=== PATIENT | male | born 1960 | race Caucasian/White ===

== ENCOUNTER 2017-04-18 06:08 | Inpatient (IN) | payer OTHER ==
[2017-04-18] VITALS (9 sets, daily range): BP systolic 110–175; BP diastolic 77–99; PULSE 61–96; RESP 16–20; TEMP 95.6–99.1; O2SAT 93–100
[~2017-04-18] VITALS: Ht 180.3 cm; Wt 105.9 kg
[2017-04-18] MEDS ORDERED: SODIUM CHLOR 0.9% 1000 ML INJ 1,000 ML IV SCH (06:27)
[2017-04-18] MEDS ORDERED: ONDANSETRON HCL 4 MG/2 ML VIAL IVP ONE (06:30)
[2017-04-18] MEDS ORDERED: PANTOPRAZOLE SODIUM 40 MG VIAL IVP ONE (06:30)
[2017-04-18] MEDS ORDERED: FAMOTIDINE 20 MG/2 ML VIAL IV PUSH ONE (06:30)
[2017-04-18] MEDS ORDERED: ALUMINUM/MAGNESIUM/SIMETH 30 ML CUP PO ONE (06:30)
[2017-04-18] MEDS ORDERED: SODIUM CHLORIDE 0.9% FLUSH 10 ML FLUSH IV FLUSH PRN ×3 (06:30→16:15)
[2017-04-18] MEDS ORDERED: LIDOCAINE VISCOUS 2% SOLN 15 ML UDC PO ONE (06:30)
--- NOTE | 2017-04-18 06:34 | PD ---
HPI Chief Complaint: GI Complaint Time Seen by Provider: 06:17 Travel History International Travel<30 days: No Contact w/Intl Traveler<30days: No Traveled to known affect area: No History of Present Illness HPI The patient is a 56-year-old male that complains of midline epigastric pain for approximately 4 hours. Initially he had no nausea, now he is developing some nausea. He denies any vomiting. He denies any fever, chest pain or shortness of breath. He denies any sore throat, ear pain, cough. He denies any melanotic or bloody stools. The pain is an 8/10 and fullness sensation, bloating sensation and he states it is a tightness sensation, sometimes throbbing. He states he drank a little [place] hard lemonade before the pain began. He denies any abdominal surgery and still has his appendix and gallbladder. PFSH Past Medical History ?: Not Social History Alcohol Use: Yes Tobacco Use: No Substance Use: Yes (POT) Allergies-Medications (Allergen,Severity, Reaction): Coded Allergies: No Known Allergies (Unverified , 04/18/17) Reported Meds & Prescriptions Reported Meds & Active Scripts Active No Active Prescriptions or Reported Medications Review of Systems Except as stated in HPI: all other systems reviewed are Neg Physical Exam Narrative GENERAL: The patient is alert, oriented 3 in moderate apparent distress with his midline epigastric discomfort. His vital signs show blood pressure 165/79 but are otherwise normal. SKIN: Focused skin assessment warm/dry. No skin rash is seen. HEAD: Atraumatic. Normocephalic. EYES: Pupils equal and round. No scleral icterus. No injection or drainage. ENT: No nasal bleeding or discharge. Mucous membranes pink and moist. NECK: Trachea midline. No JVD. CARDIOVASCULAR: Regular rate and rhythm. No murmur appreciated. RESPIRATORY: No accessory muscle use. Clear to auscultation. Breath sounds equal bilaterally. GASTROINTESTINAL: Abdomen soft, with slight tenderness to direct palpation midline slightly above the umbilicus in a diffuse area, nondistended. Hepatic and splenic margins not palpable. No guarding or rebound is present. MUSCULOSKELETAL: No obvious deformities. No clubbing. No cyanosis. No edema. NEUROLOGICAL: Awake and alert. No obvious cranial nerve deficits. Motor grossly within normal limits. Normal speech. PSYCHIATRIC: Appropriate mood and affect; insight and judgment normal. Data Data Last Documented VS Vital Signs Date Time Temp Pulse Resp B/P (MAP) Pulse Ox O2 Delivery O2 Flow Rate FiO2 04/18/17 06:35 78 16 175/97 (123) 168/99 (122) 04/18/17 06:14 97.6 98 Orders Orders Complete Blood Count With Diff (04/18/17 06:27) Comprehensive Metabolic Panel (04/18/17 06:27) Lipase (04/18/17 06:27) Urinalysis - C+S If Indicated (04/18/17 06:27) Ct Abd/Pel W Iv Contrast(Rout) (04/18/17 06:27) Iv Access Insert/Monitor (04/18/17:27) Ecg Monitoring (04/18/17:27) Oximetry (04/18/17 06:27) Ondansetron Inj (Zofran Inj) (04/18/17 06:30) Pantoprazole Inj (Protonix Inj) (04/18/17 06:30) Sodium Chlor 0.9% 1000 Ml Inj (Ns 1000 M (04/18/17 06:27) Sodium Chloride 0.9% Flush (Ns Flush) (04/18/17 06:30) Famotidine Inj (Pepcid Inj) (04/18/17 06:30) Al-Mag Hy-Si 40-40-4 Mg/Ml Liq (Mag-Al P (04/18/17 06:30) Lidocaine 2% Viscous (Xylocaine 2% Visco (04/18/17 06:30) Morphine Inj (Morphine Inj) (04/18/17 07:00) Ondansetron Inj (Zofran Inj) (04/18/17 07:00) Labs Laboratory Tests Test 04/18/17 06:35 White Blood Count 11.5 TH/MM3 Red Blood Count 5.54 MIL/MM3 Hemoglobin 15.6 GM/DL Hematocrit 45.0 % Mean Corpuscular Volume 81.2 FL Mean Corpuscular Hemoglobin 28.1 PG Mean Corpuscular Hemoglobin Concent 34.6 % Red Cell Distribution Width 13.0 % Platelet Count 274 TH/MM3 Mean Platelet Volume 9.4 FL Neutrophils (%) (Auto) 80.5 % Lymphocytes (%) (Auto) 12.2 % Monocytes (%) (Auto) 5.8 % Eosinophils (%) (Auto) 0.6 % Basophils (%) (Auto) 0.9 % Neutrophils # (Auto) 9.2 TH/MM3 Lymphocytes # (Auto) 1.4 TH/MM3 Monocytes # (Auto) 0.7 TH/MM3 Eosinophils # (Auto) 0.1 TH/MM3 Basophils # (Auto) 0.1 TH/MM3 CBC Comment DIFF FINAL Differential Comment Blood Urea Nitrogen 16 MG/DL Random Glucose 156 MG/DL Albumin 3.7 GM/DL Calcium Level 8.7 MG/DL Sodium Level 140 MEQ/L Potassium Level 3.5 MEQ/L Chloride Level 107 MEQ/L Carbon Dioxide Level 26.4 MEQ/L Anion Gap 7 MEQ/L Lipase 127 U/L MDM Medical Decision Making Medical Screen Exam Complete: Yes Emergency Medical Condition: Yes Medical Record Reviewed: Yes Interpretation(s) The CBC shows a white count 11,500 with 81% neutrophils but is otherwise unremarkable. Differential Diagnosis GERD, ulcer pain, cholelithiasis with colic, cholecystitis, colitis, pyelonephritis, gastritis, pancreatitis, electrolyte disorder Narrative Course It is now 0700 and the patient is taken over by Dr. Allen. Scripts No Active Prescriptions or Reported Meds Miquel Campbell MD Apr 18, 2017 06:34
[2017-04-18 06:46] LABS: AUTOMATED NEUTROPHIL # 9.2 TH/MM3 (1.8-7.7); BASOPHIL # 0.1 TH/MM3 (0-0.2); BASOPHIL % 0.9 % (0.0-2.0); EOSINOPHIL # 0.1 TH/MM3 (0-0.4); EOSINOPHIL % 0.6 % (0.0-4.0); HEMOGLOBIN 15.6 GM/DL (13.0-17.0); LYMPH % 12.2 % (9.0-44.0); LYMPHOCYTE # 1.4 TH/MM3 (1.0-4.8); MEAN CELL VOLUME 81.2 FL (80.0-100.0); MEAN CORPUSCULAR HEMOGLOBIN 28.1 PG (27.0-34.0); MEAN CORPUSCULAR HGB CONC 34.6 % (32.0-36.0); MEAN PLATELET VOLUME 9.4 FL (7.0-11.0); MONO % 5.8 % (0.0-8.0); MONOCYTE # 0.7 TH/MM3 (0-0.9); NEUT % 80.5 % (16.0-70.0); PLATELET COUNT 274 TH/MM3 (150-450); RED BLOOD COUNT 5.54 MIL/MM3 (4.50-5.90); WHITE BLOOD COUNT 11.5 TH/MM3 (4.0-11.0)
[2017-04-18 06:55] LABS: CHLORIDE 107 MEQ/L (98-107); SODIUM (NA) 140 MEQ/L (136-145)
[2017-04-18 06:59] LABS: CALCIUM 8.7 MG/DL (8.5-10.1)
[2017-04-18 07:00] LABS: ALBUMIN 3.7 GM/DL (3.4-5.0); BICARBONATE 26.4 MEQ/L (21.0-32.0); BLOOD UREA NITROGEN 16 MG/DL (7-18); GLUCOSE,RANDOM 156 MG/DL (74-106)
[2017-04-18] MEDS ORDERED: ONDANSETRON HCL 4 MG/2 ML VIAL IV ONE ×2 (07:00→12:00)
[2017-04-18] MEDS ORDERED: MORPHINE SULFATE 2 MG/ML INJ IV PUSH ONE (07:00)
[2017-04-18 07:02] LABS: ALT (GPT) 25 U/L (12-78); AST (GOT) 13 U/L (15-37); GLOMERULAR FILTRATION RATE 63 ML/MIN (>89)
[2017-04-18 07:04] LABS: TOTAL BILIRUBIN ADULT 0.6 MG/DL (0.2-1.0); TOTAL PROTEIN 7.6 GM/DL (6.4-8.2)
[2017-04-18 07:05] LABS: ALKALINE PHOSPHATASE 86 U/L (45-117)
--- NOTE | 2017-04-18 07:12 | PD ---
HPI Chief Complaint: GI Complaint Time Seen by Provider: 07:11 Travel History International Travel<30 days: No Contact w/Intl Traveler<30days: No Traveled to known affect area: No History of Present Illness HPI Care assumed from Dr. Campbell please see his note. The patient is a 56-year-old male that complains of midline epigastric pain for approximately 4 hours. Initially he had no nausea, now he is developing some nausea. He denies any vomiting. He denies any fever, chest pain or shortness of breath. He denies any sore throat, ear pain, cough. He denies any melanotic or bloody stools. The pain is an 8/10 and fullness sensation, bloating sensation and he states it is a tightness sensation, sometimes throbbing. He states he drank a little [place] hard lemonade before the pain began. He denies any abdominal surgery and still has his appendix and gallbladder. PFSH Past Medical History ?: Not Social History Alcohol Use: Yes Tobacco Use: No Substance Use: Yes (POT) Allergies-Medications (Allergen,Severity, Reaction): Coded Allergies: No Known Allergies (Unverified , 04/18/17) Reported Meds & Prescriptions Reported Meds & Active Scripts Active No Active Prescriptions or Reported Medications Physical Exam Narrative GENERAL: The patient is alert, oriented 3 in moderate apparent distress with his midline epigastric discomfort. His vital signs show blood pressure 165/79 but are otherwise normal. SKIN: Focused skin assessment warm/dry. No skin rash is seen. HEAD: Atraumatic. Normocephalic. EYES: Pupils equal and round. No scleral icterus. No injection or drainage. ENT: No nasal bleeding or discharge. Mucous membranes pink and moist. NECK: Trachea midline. No JVD. CARDIOVASCULAR: Regular rate and rhythm. No murmur appreciated. RESPIRATORY: No accessory muscle use. Clear to auscultation. Breath sounds equal bilaterally. GASTROINTESTINAL: Abdomen soft, with slight tenderness to direct palpation midline slightly above the umbilicus in a diffuse area, nondistended. Hepatic and splenic margins not palpable. No guarding or rebound is present. MUSCULOSKELETAL: No obvious deformities. No clubbing. No cyanosis. No edema. NEUROLOGICAL: Awake and alert. No obvious cranial nerve deficits. Motor grossly within normal limits. Normal speech. PSYCHIATRIC: Appropriate mood and affect; insight and judgment normal. Data Data Last Documented VS Vital Signs Date Time Temp Pulse Resp B/P (MAP) Pulse Ox O2 Delivery O2 Flow Rate FiO2 04/18/17 08:20 61 16 150/88 (108) 98 Room Air 04/18/17 06:14 97.6 Orders Orders Complete Blood Count With Diff (04/18/17 06:27) Comprehensive Metabolic Panel (04/18/17 06:27) Lipase (04/18/17 06:27) Urinalysis - C+S If Indicated (04/18/17 06:27) Ct Abd/Pel W Iv Contrast(Rout) (04/18/17 06:27) Iv Access Insert/Monitor (04/18/17 06:27) Ecg Monitoring (04/18/17 06:27) Oximetry (04/18/17 06:27) Ondansetron Inj (Zofran Inj) (04/18/17 06:30) Pantoprazole Inj (Protonix Inj) (04/18/17 06:30) Sodium Chlor 0.9% 1000 Ml Inj (Ns 1000 M (04/18/17 06:27) Sodium Chloride 0.9% Flush (Ns Flush) (04/18/17 06:30) Famotidine Inj (Pepcid Inj) (04/18/17 06:30) Al-Mag Hy-Si 40-40-4 Mg/Ml Liq (Mag-Al P (04/18/17 06:30) Lidocaine 2% Viscous (Xylocaine 2% Visco (04/18/17 06:30) Morphine Inj (Morphine Inj) (04/18/17 07:00) Ondansetron Inj (Zofran Inj) (04/18/17 07:00) Promethazine Inj (Phenergan Inj) (04/18/17 07:30) Iohexol 350 Inj (Omnipaque 350 Inj) (04/18/17 07:30) Admit Order (Ed Use Only) (04/18/17 ) Labs Laboratory Tests Test 04/18/17 06:35 04/18/17 07:45 White Blood Count 11.5 TH/MM3 Red Blood Count 5.54 MIL/MM3 Hemoglobin 15.6 GM/DL Hematocrit 45.0 % Mean Corpuscular Volume 81.2 FL Mean Corpuscular Hemoglobin 28.1 PG Mean Corpuscular Hemoglobin Concent 34.6 % Red Cell Distribution Width 13.0 % Platelet Count 274 TH/MM3 Mean Platelet Volume 9.4 FL Neutrophils (%) (Auto) 80.5 % Lymphocytes (%) (Auto) 12.2 % Monocytes (%) (Auto) 5.8 % Eosinophils (%) (Auto) 0.6 % Basophils (%) (Auto) 0.9 % Neutrophils # (Auto) 9.2 TH/MM3 Lymphocytes # (Auto) 1.4 TH/MM3 Monocytes # (Auto) 0.7 TH/MM3 Eosinophils # (Auto) 0.1 TH/MM3 Basophils # (Auto) 0.1 TH/MM3 CBC Comment DIFF FINAL Differential Comment Blood Urea Nitrogen 16 MG/DL Creatinine 1.20 MG/DL Random Glucose 156 MG/DL Total Protein 7.6 GM/DL Albumin 3.7 GM/DL Calcium Level 8.7 MG/DL Alkaline Phosphatase 86 U/L Aspartate Amino Transf (AST/SGOT) 13 U/L Alanine Aminotransferase (ALT/SGPT) 25 U/L Total Bilirubin 0.6 MG/DL Sodium Level 140 MEQ/L Potassium Level 3.5 MEQ/L Chloride Level 107 MEQ/L Carbon Dioxide Level 26.4 MEQ/L Anion Gap 7 MEQ/L Estimat Glomerular Filtration Rate 63 ML/MIN Lipase 127 U/L Urine Collection Type CLEAN CATCH Urine Color YELLOW Urine Turbidity CLEAR Urine pH 6.0 Urine Specific [place] 1.035 Urine Protein TRACE mg/dL Urine Glucose (UA) 100 mg/dL Urine Ketones NEG mg/dL Urine Occult Blood NEG Urine Nitrite NEG Urine Bilirubin NEG Urine Leukocyte Esterase NEG Urine RBC 0-3 /hpf Urine Squamous Epithelial Cells 0-5 /hpf Urine Mucus OCC /lpf Microscopic Urinalysis Comment CULT NOT INDICATED Urine Collection Time 07:45 MDM Medical Decision Making Medical Screen Exam Complete: Yes Emergency Medical Condition: Yes Differential Diagnosis Gastroenteritis, small bowel obstruction, GERD, cholecystitis, pancreatitis Narrative Course Assessment and plan discussed with the patient at bedside. Mild leukocytosis noted. Blood pressure noted. Last meal 10 PM yesterday. Last 72 hours Impressions Abdomen/Pelvis CT 04/18/17 0627 Signed Impressions: Service Date/Time: Tuesday, April 18, 2017 07:28 - CONCLUSION: 1. 2 gallstones are seen. The gallbladder is mildly distended but the gallbladder wall not clearly thickened and no surrounding inflammatory changes seen. 2. 3 small nonobstructing left renal stones. Ambrocio Walsh MD Physician Communication Physician Communication Spoke with Dr. Sutton who is in agreement will admit. Spoke with Dr. Jin who is on trauma call and agreed with transfer to the main. Diagnosis Primary Impression: Cholecystitis Additional Impressions: Leukocytosis Qualified Codes: D72.829 - Elevated white blood cell count, unspecified Hypertension Qualified Codes: I10 - Essential (primary) hypertension Scripts No Active Prescriptions or Reported Meds David Allen MD Apr 18, 2017 07:12
[2017-04-18] MEDS ORDERED: PROMETHAZINE INJ 25 MG/ML VIAL IM ONE (07:30)
[2017-04-18] MEDS ORDERED: IOHEXOL 350 MG/ML 10 ML VIAL (for RAD DIAG) IVCONTRAST ONE (07:30)
--- NOTE | 2017-04-18 07:49 | RADRPT ---
EXAM DATE/TIME: 04/18/2017 07:28 [facility] COMPARISON: No previous studies available for comparison. INDICATIONS : Middle abdominal pain, nausea. IV CONTRAST: 100 cc Omnipaque 350 (iohexol) IV ORAL CONTRAST: No oral contrast ingested. RADIATION DOSE: 21.26 CTDIvol (mGy) MEDICAL HISTORY : None SURGICAL HISTORY : None. ENCOUNTER: Initial ACUITY: 1 day PAIN SCALE: 8/10 LOCATION: middle abdomen TECHNIQUE: Volumetric scanning of the abdomen and pelvis was performed. Using automated exposure control and ad justment of the mA and/or kV according to patient size, radiation dose was kept as low as reasonably achievable to obtain optimal diagnostic quality images. DICOM format image data is available electro nically for review and comparison. FINDINGS: LOWER LUNGS: There is mild increased density at the lung bases likely related to atelectasis. LIVER: Homogeneous density without lesion. There is no dilation of the biliary tree. There are calcified ga llstones. One of the gallstones is seen in the gallbladder neck region. The gallbladder is moderately distended. The gallbladder wall is not clearly thickened. Surrounding inflammatory change is not see n. SPLEEN: Normal size without lesion. PANCREAS: Within normal limits. KIDNEYS: There are 3 small, less than 5 mm, nonobstructing left renal stones seen. No right-sided stones are s een. No hydronephrosis is seen. ADRENAL GLANDS: Within normal limits. VASCULAR: There is no aortic aneurysm. Aortic calcifications are seen. BOWEL/MESENTERY: The stomach, small bowel, and colon demonstrate no acute abnormality. There is no free intraperitone al air or fluid. The appendix is normal. ABDOMINAL WALL: Within normal limits. RETROPERITONEUM: There is no lymphadenopathy. BLADDER: No wall thickening or mass. REPRODUCTIVE: Within normal limits. INGUINAL: There is no lymphadenopathy or hernia. MUSCULOSKELETAL: There is degenerative change in the lumbar spine. 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 CONCLUSION: 1. 2 gallstones are seen. The gallbladder is mildly distended but the gallbladder wall not clearly th ickened and no surrounding inflammatory changes seen. 2. 3 small nonobstructing left renal stones. Ambrocio Walsh MD on April 18, 2017 at 7:40 Board Certified Radiologist. This report was verified electronically.
[2017-04-18 07:50] LABS: BILIRUBIN, URINE NEG (NEG); BLOOD, URINE NEG (NEG); GLUCOSE,URINE 100 mg/dL (NEG); KETONE, URINE NEG (NEG); NITRITE,URINE NEG (NEG); URINE LEUKOCYTE ESTERASE NEG (NEG)
[2017-04-18 07:55] LABS: URINE COLOR YELLOW (YELLW/STRAW)
[2017-04-18 07:56] LABS: MUCUS URINE OCC /lpf (OCC); RBC, URINE 0-3 /hpf (0-3); SQUAMOUS EPITHELIAL CELL URINE 0-5 /hpf (0-5)
[2017-04-18] MEDS ORDERED: ONDANSETRON HCL 4 MG/2 ML VIAL IVP PRN (10:30)
[2017-04-18] MEDS ORDERED: MAGNESIUM HYDROXIDE SUSP 30 ML CUP PO PRN ×2 (10:30→16:15)
[2017-04-18] MEDS ORDERED: NALOXONE HCL 0.4 MG/ML AMP IV PUSH PRN (10:30)
[2017-04-18] MEDS ORDERED: LACTULOSE SYRUP 20 GM/30 ML CUP PO PRN (10:30)
[2017-04-18] MEDS ORDERED: MORPHINE SULFATE 2 MG/ML INJ IV PUSH PRN (10:30)
[2017-04-18] MEDS ORDERED: SENNOSIDES 8.6 MG TAB PO PRN (10:30)
[2017-04-18] MEDS ORDERED: BISACODYL 10 MG SUPP RECTAL PRN (10:30)
--- NOTE | 2017-04-18 10:38 | HHI.HP ---
HPI Service [facility] Hospitalists Primary Care Physician No Primary Care Physician Admission Diagnosis acute cholecystitis Chief Complaint: abdominal pain nausea one to two days Travel History International Travel<30 Days: No Contact w/Intl Traveler <30 Da: No Traveled to Known Affected Are: No History of Present Illness The patient is a 56-year-old male that complains of midline epigastric pain for approximately 4 hours. Initially he had no nausea, now he is developing some nausea. He denies any vomiting. He denies any fever, chest pain or shortness of breath. He denies any sore throat, ear pain, cough. He denies any melanotic or bloody stools. The pain is an 8/10 and fullness sensation, bloating sensation and he states it is a tightness sensation, sometimes throbbing. He states he drank a little [place] hard lemonade before the pain began. He denies any abdominal surgery and still has his appendix and gallbladder. Patient symptoms may have started about 2 days ago and on CT has distended gallbladder with gallstones Review of Systems Gastrointestinal: COMPLAINS OF: Abdominal pain, Nausea Past Family Social History Past Medical History none Past Surgical History none Reported Medications none Allergies: Coded Allergies: No Known Allergies (Unverified , 04/18/17) Social History occ-pot non smoker non drinker Physical Exam Vital Signs Vital Signs Date Time Temp Pulse Resp B/P (MAP) Pulse Ox O2 Delivery O2 Flow Rate FiO2 04/18/17 08:20 61 16 150/88 (108) 98 Room Air 04/18/17 07:05 16 04/18/17 06:35 78 16 175/97 (123) 168/99 (122) 04/18/17 06:14 97.6 74 18 165/79 (107) 98 Physical Exam GENERAL: This is a well-nourished, well-developed patient, in no apparent distress. SKIN: No rashes, ecchymoses or lesions. Cool and dry. HEAD: Atraumatic. Normocephalic. No temporal or scalp tenderness. EYES: Pupils equal round and reactive. Extraocular motions intact. No scleral icterus. No injection or drainage. ENT: Nose without bleeding, purulent drainage or septal hematoma. Throat without erythema, tonsillar hypertrophy or exudate. Uvula midline. Airway patent. NECK: Trachea midline. No JVD or lymphadenopathy. Supple, nontender, no meningeal signs. CARDIOVASCULAR: Regular rate and rhythm without murmurs, gallops, or rubs. RESPIRATORY: Clear to auscultation. Breath sounds equal bilaterally. No wheezes , rales, or rhonchi. GASTROINTESTINAL: Abdomen soft, tender rt upper quadrant no rebound MUSCULOSKELETAL: Extremities without clubbing, cyanosis, or edema. No joint tenderness, effusion, or edema noted. No calf tenderness. Negative Homans sign bilaterally. NEUROLOGICAL: Awake and alert. Cranial nerves II through XII intact. Motor and sensory grossly within normal limits. Five out of 5 muscle strength in all muscle groups. Normal speech. Laboratory Laboratory Tests Test 04/18/17 06:35 04/18/17 07:45 White Blood Count 11.5 Red Blood Count 5.54 Hemoglobin 15.6 Hematocrit 45.0 Mean Corpuscular Volume 81.2 Mean Corpuscular Hemoglobin 28.1 Mean Corpuscular Hemoglobin Concent 34.6 Red Cell Distribution Width 13.0 Platelet Count 274 Mean Platelet Volume 9.4 Neutrophils (%) (Auto) 80.5 Lymphocytes (%) (Auto) 12.2 Monocytes (%) (Auto) 5.8 Eosinophils (%) (Auto) 0.6 Basophils (%) (Auto) 0.9 Neutrophils # (Auto) 9.2 Lymphocytes # (Auto) 1.4 Monocytes # (Auto) 0.7 Eosinophils # (Auto) 0.1 Basophils # (Auto) 0.1 CBC Comment DIFF FINAL Differential Comment Blood Urea Nitrogen 16 Creatinine 1.20 Random Glucose 156 Total Protein 7.6 Albumin 3.7 Calcium Level 8.7 Alkaline Phosphatase 86 Aspartate Amino Transf (AST/SGOT) 13 Alanine Aminotransferase (ALT/SGPT) 25 Total Bilirubin 0.6 Sodium Level 140 Potassium Level 3.5 Chloride Level 107 Carbon Dioxide Level 26.4 Anion Gap 7 Estimat Glomerular Filtration Rate 63 Lipase 127 Urine Collection Type CLEAN CATCH Urine Color YELLOW Urine Turbidity CLEAR Urine pH 6.0 Urine Specific [place] 1.035 Urine Protein TRACE Urine Glucose (UA) 100 Urine Ketones NEG Urine Occult Blood NEG Urine Nitrite NEG Urine Bilirubin NEG Urine Leukocyte Esterase NEG Urine RBC 0-3 Urine Squamous Epithelial Cells 0-5 Urine Mucus OCC Microscopic Urinalysis Comment CULT NOT INDICATED Urine Collection Time 07:45 Result Diagram: 04/18/1763404/[id number]/17634 Imaging Last 24 hours Impressions Abdomen/Pelvis CT 04/18/17 06 Signed Impressions: Service Date/Time: Tuesday, April 18, 2017 07:28 - CONCLUSION: 1. 2 gallstones are seen. The gallbladder is mildly distended but the gallbladder wall not clearly thickened and no surrounding inflammatory changes seen. 2. 3 small nonobstructing left renal stones. Ambrocio Walsh MD Course in er given pain medication Septic Shock Reassessment Septic shock perfusion: reassessment completed Caprini VTE Risk Assessment Caprini VTE Risk Assessment: No/Low Risk (score <= 1) Caprini Risk Assessment Model Point Value = 1 Point Value = 2 Point Value = 3 Point Value = 5 Age 41-60 Minor surgery BMI > 25 kg/m2 Swollen legs Varicose veins or History of unexplained or recurrent spontaneous Oral contraceptives or hormone replacement Sepsis (< 1 month) Serious lung disease, including pneumonia (< 1 month) Abnormal pulmonary function Acute myocardial infarction Congestive heart failure (< 1 month) History of inflammatory bowel disease Medical patient at bed rest Age 61-74 Arthroscopic surgery Major open surgery (> 45 min) Laparoscopic surgery (> 45 min) Malignancy Confined to bed (> 72 hours) Immobilizing plaster cast Central venous access Age >= 75 History of VTE Family history of VTE Factor V Leiden Prothrombin [id number] Lupus anticoagulant Anticardiolipin antibodies Elevated serum homocysteine Heparin-induced thrombocytopenia Other congenital or acquired thrombophilia Stroke (< 1 month) Elective arthroplasty Hip, pelvis, or leg fracture Acute spinal cord injury (< 1 month) Prophylaxis Regimen Total Risk Factor Score Risk Level Prophylaxis Regimen 0-1 Low Early ambulation 2 Moderate Order ONE of the following: *Sequential Compression Device (SCD) *Heparin 5000 units SQ BID 3-4 Higher Order ONE of the following medications: *Heparin 5000 units SQ TID *Enoxaparin/Lovenox 40 mg SQ daily (WT < 150 kg, CrCl > 30 mL/min) *Enoxaparin/Lovenox 30 mg SQ daily (WT < 150 kg, CrCl > 10-29 mL/min) *Enoxaparin/Lovenox 30 mg SQ BID (WT < 150 kg, CrCl > 30 mL/min) AND/OR *Sequential Compression Device (SCD) 5 or more Highest Order ONE of the following medications: *Heparin 5000 units SQ TID (Preferred with Epidurals) *Enoxaparin/Lovenox 40 mg SQ daily (WT < 150 kg, CrCl > 30 mL/min) *Enoxaparin/Lovenox 30 mg SQ daily (WT < 150 kg, CrCl > 10-29 mL/min) *Enoxaparin/Lovenox 30 mg SQ BID (WT < 150 kg, CrCl > 30 mL/min) AND *Sequential Compression Device (SCD) Assessment and Plan Problem List: (1) Cholecystitis ICD Codes: K81.9 - Cholecystitis, unspecified Status: Acute Plan: to have surgical evaluation empiric IV fluid levaquin further plan as per general surgery Assessment and Plan as above Code Status full Discussed Condition With patient Physician Certification 2 Midnight Certification Type: Admission for Inpatient Services Order for Inpatient Services The services are ordered in accordance with Medicare regulations or non- Medicare payer requirements, as applicable. In the case of services not specified as inpatient-only, they are appropriately provided as inpatient services in accordance with the 2-midnight benchmark. Estimated LOS (days): 3 3 days is the estimated time the patient will need to remain in the hospital, assuming treatment plan goals are met and no additional complications. Post-Hospital Plan: Home Scott Sutton MD Apr 18, 2017 10:38
[2017-04-18] MEDS: SODIUM CHLOR 0.45% 1000 ML INJ 1,000 ML IV SCH ×2 (10:57→12:45)
[2017-04-18] MEDS: LEVOFLOXACIN 500 MG PREMIX INJ 100 ML IV SCH (10:58)
[2017-04-18] MEDS: PANTOPRAZOLE SODIUM 40 MG VIAL IV PUSH SCH (10:58)
[2017-04-18] MEDS ORDERED: LIDOCAINE HCL 1% PF 5 ML SYRINGE OTHER ONE (12:00)
[2017-04-18] MEDS ORDERED: GLYCOPYRROLATE 1 MG/5 ML SYRINGE IV PUSH ONE (12:00)
[2017-04-18] MEDS ORDERED: PROPOFOL 200 MG/20 ML AMP IV ONE (12:00)
[2017-04-18] MEDS ORDERED: DEXAMETHASONE SOD PHOS 4 MG/ML VIAL IV ONE (12:00)
[2017-04-18] MEDS ORDERED: ROCURONIUM INJ 50 MG/5 ML SYRINGE IV PUSH ONE (12:00)
[2017-04-18] MEDS ORDERED: NEOSTIGMINE 5 MG/5 ML SYRINGE IV PUSH ONE (12:00)
[2017-04-18] MEDS ORDERED: BUPIVACAINE/EPINEPHRINE 0.25% 50 ML VIAL ONE (14:40)
[2017-04-18] MEDS ORDERED: Post-op Orders (for Pharmacy) XX ONE (16:15)
[2017-04-18] MEDS ORDERED: ONDANSETRON HCL 4 MG/2 ML VIAL IV PUSH PRN (16:15)
[2017-04-18] MEDS ORDERED: METOCLOPRAMIDE HCL 10 MG/2 ML VIAL IVS PRN (16:15)
[2017-04-18] MEDS ORDERED: MIDAZOLAM HCL 2 MG/2 ML VIAL ONE (16:40)
[2017-04-18] MEDS: SODIUM CHLOR 0.9% 1000 ML INJ 1,000 ML IV SCH (16:46)
[2017-04-18] MEDS ORDERED: DO NOT ADM ANY ANTICOAGULANT DRUGS PRN (17:15)
[2017-04-18] MEDS: KETOROLAC TROMETHAMINE 30 MG/ML (IVP) VIAL IVP PRN (17:40)
[2017-04-18] MEDS ORDERED: SODIUM CHLORIDE 0.9% FLUSH 10 ML FLUSH IV FLUSH SCH (21:00)
[2017-04-18] MEDS: DOCUSATE SODIUM 50 MG/SENNA 8.6 MG TAB PO SCH (21:29)
[2017-04-18] MEDS: SODIUM CHLORIDE 0.9% FLUSH 10 ML FLUSH IV FLUSH SCH (21:29)
[2017-04-19] MEDS: SODIUM CHLOR 0.9% 1000 ML INJ 1,000 ML IV SCH ×2 (03:00→11:51)
[2017-04-19 04:00] VITALS: BP 118/68; PULSE 91; RESP 20; TEMP 97.6; O2SAT 96
[2017-04-19 08:00] VITALS: BP 110/67; PULSE 89; RESP 18; TEMP 97.5; O2SAT 94
[2017-04-19 08:17] LABS: AUTOMATED NEUTROPHIL # 10.7 TH/MM3 (1.8-7.7); HEMATOCRIT 40.9 % (39.0-51.0); HEMOGLOBIN 13.8 GM/DL (13.0-17.0); LYMPH % 10.6 % (9.0-44.0); LYMPHOCYTE # 1.4 TH/MM3 (1.0-4.8); MEAN CELL VOLUME 81.8 FL (80.0-100.0); MEAN CORPUSCULAR HEMOGLOBIN 27.6 PG (27.0-34.0); MEAN CORPUSCULAR HGB CONC 33.7 % (32.0-36.0); MEAN PLATELET VOLUME 9.2 FL (7.0-11.0); MONOCYTE # 1.2 TH/MM3 (0-0.9); NEUT % 80.4 % (16.0-70.0); PLATELET COUNT 252 TH/MM3 (150-450); RED CELL DISTRIBUTION WIDTH 14.1 % (11.6-17.2); WHITE BLOOD COUNT 13.3 TH/MM3 (4.0-11.0)
[2017-04-19 08:41] LABS: ALBUMIN 3.1 GM/DL (3.4-5.0); ALT (GPT) 40 U/L (12-78); AST (GOT) 25 U/L (15-37); BICARBONATE 24.5 MEQ/L (21.0-32.0); BLOOD UREA NITROGEN 12 MG/DL (7-18); CALCIUM 8.1 MG/DL (8.5-10.1); CHLORIDE 109 MEQ/L (98-107); CREATININE 0.96 MG/DL (0.60-1.30); GLOMERULAR FILTRATION RATE 82 ML/MIN (>89); GLUCOSE,RANDOM 94 MG/DL (74-106); SODIUM (NA) 141 MEQ/L (136-145)
[2017-04-19 08:43] LABS: ALKALINE PHOSPHATASE 63 U/L (45-117); TOTAL PROTEIN 6.4 GM/DL (6.4-8.2)
[2017-04-19] MEDS: DOCUSATE SODIUM 50 MG/SENNA 8.6 MG TAB PO SCH (09:13)
[2017-04-19] MEDS: SODIUM CHLORIDE 0.9% FLUSH 10 ML FLUSH IV FLUSH SCH (09:14)
[2017-04-19] MEDS: KETOROLAC TROMETHAMINE 30 MG/ML (IVP) VIAL IVP PRN (09:14)
--- NOTE | 2017-04-19 09:50 | HHI.PR ---
Subjective Remarks flatus alex liquids eager for d/c pain under control Objective Vitals heart reg lung cta abd bs. incisions ok. ext no edema Vital Signs Date Time Temp Pulse Resp B/P (MAP) Pulse Ox O2 Delivery O2 Flow Rate FiO2 04/19/17 08:00 97.5 89 18 110/67 (81) 94 04/19/17 04:00 97.6 91 20 118/68 (85) 96 04/18/17 23:55 99.1 91 20 110/77 (88) 97 04/18/17 22:08 Room Air 04/18/17 20:00 97.6 81 19 137/80 (99) 96 04/18/17 17:43 95.6 62 16 140/87 (104) 93 04/18/17 17:30 Nasal Cannula 2.00 04/18/17 17:15 57 16 138/86 (103) 96 Nasal Cannula 2 04/18/17 17:00 71 17 157/93 (114) 96 Nasal Cannula 4 04/18/17 16:45 70 14 150/87 (108) 96 Nasal Cannula 4 04/18/17 16:35 98.5 67 17 161/104 (123) 96 Simple Mask 7 04/18/17 12:28 97.8 85 17 134/80 (98) 100 04/18/17 10:30 96 18 159/87 (111) 98 Room Air Result Diagram: 04/19/17 0729 04/19/17 0729 Imaging Last 24 hours Impressions Abdomen/Pelvis CT 04/18/17 0627 Signed Impressions: Service Date/Time: Tuesday, April 18, 2017 07:28 - CONCLUSION: 1. 2 gallstones are seen. The gallbladder is mildly distended but the gallbladder wall not clearly thickened and no surrounding inflammatory changes seen. 2. 3 small nonobstructing left renal stones. Ambrocio Walsh MD A/P Problem List: (1) Cholecystitis ICD Codes: K81.9 - Cholecystitis, unspecified Status: Acute Plan: pod 1 lap ana for cholecystitis advance diet and d/c when ok with gen surg Eric Gale MD Apr 19, 2017 09:50
--- NOTE | 2017-04-19 09:51 | HHI.DCPOC ---
Discharge Care Plan Diagnosis: (1) Cholecystitis Goals to Promote Your Health * To prevent worsening of your condition and complications * To maintain your health at the optimal level Directions to Meet Your Goals Take your medications as prescribed Follow your dietary instruction Follow activity as directed Keep your appointments as scheduled Take your immunizations and boosters as scheduled If your symptoms worsen call your PCP, if no PCP go to Urgent Care Center or Emergency Room Smoking is Dangerous to Your Health. Avoid second hand smoke Call the 24-hour hour crisis hotline for domestic abuse at Eric Gale MD Apr 19, 2017 09:51
[2017-04-19] MEDS: PANTOPRAZOLE SODIUM 40 MG VIAL IV PUSH SCH (11:50)
[2017-04-19] MEDS: LEVOFLOXACIN 500 MG PREMIX INJ 100 ML IV SCH (11:50)
[2017-04-19 12:00] VITALS: BP 127/78; PULSE 76; RESP 18; TEMP 98.4; O2SAT 94
--- NOTE | 2017-04-20 14:35 | MP ---
cc: SLIM FOURNIER DATE OF SURGERY: . PREOPERATIVE DIAGNOSIS: Cholecystitis with cholelithiasis. POSTOPERATIVE DIAGNOSIS: Cholecystitis with cholelithiasis. OPERATIVE PROCEDURE PERFORMED: Laparoscopic cholecystectomy. SURGEON: Slim Fournier MD. ANESTHESIA: General endotracheal anesthesia. ESTIMATED BLOOD LOSS: 20 mL FINDINGS: Edematous gallbladder with stones. SPECIMEN: Gallbladder with stones. COMPLICATIONS: None. DESCRIPTION OF THE PROCEDURE IN DETAIL: The patient was brought to the operating room and placed on the operating table in a supine position. A bilateral sequential inflation device was placed on the lower extremities. General anesthesia was instituted, antibiotics initiated. The abdomen was prepped and draped sterilely. A point in the periumbilical region was anesthetized with 0.25% Marcaine with epinephrine. A skin incision was made. A 5 mm Optiview port was placed under direct vision, a pneumoperitoneum created. Under direct vision a 12 mm subxiphoid and two 5 mm right upper quadrant ports were placed. Prior to placement of all ports the skin and peritoneum were anesthetized with 0.25% Marcaine with epinephrine. The patient was placed in reverse Trendelenburg position, right side up. The gallbladder was retracted into the upper abdomen. The infundibulum was retracted. Calot's triangle was opened. The hepatoduodenal ligament was incised. The cystic artery was identified. It was circumferentially dissected with the Harmonic scalpel and then divided with the Harmonic scalpel. The cystic duct was identified, circumferentially dissected and divided with the Harmonic scalpel. The gallbladder was removed from the liver bed using the Harmonic scalpel. It was retrieved from the peritoneal cavity in an Endopouch through the 12 mm port site. The operative site was inspected. Hemostasis was present. There was no evidence of bile leak. CO2 was released. All ports were removed. All skin incisions were closed with 4-0 Monocryl. The abdominal wall was cleaned and a sterile dressing placed. The patient was awakened and taken to the recovery room. MD LG Narvaez/DINORA /6:38 PM /2:29 PM
== END 2017-04-19 13:25 | disposition home or self-care (01) | DRG 419 ==
LOC: PHED 06:08 → PHEDA 08:52 → N06B 12:31
PROVIDERS: ADMIT Hospitalist; ATTEND Hospitalist
PROC: 0FT44ZZ Resection of Gallbladder, Percutaneous Endoscopic Approach (ICD-10-PCS; principal; 2017-04-18 14:55)
DX: K80.12 Calculus of gallbladder with acute and chronic cholecystitis without obstruction (principal)
CPT/HCPCS: 74177; 80053; 81001; 83690; 85025; 88304; 94150; 96361; 96372; 96374; 96375; 96376; C9113; J1100; J1885; J1956; J2250; J2270; J2405; J2550; J2710; J3010; J7030; Q9967